=== PATIENT | male | born 1970 | race Caucasian/White ===

== ENCOUNTER → 2021-08-17 | Emergency (ER) | payer MEDICAID ==
[~2021-08-17] VITALS: Ht 185.4 cm; Wt 120.0 kg
[~2021-08-17] MED LIST: CHLO25CA10 PO; LIDOcaine 1% W/epiNEPHrine 1:200,000 10ml vial IJ ONE; SULF1TAB49 PO; sulfamethoxazole/trimethoprim DS (800/160mg) tablet PO ONE
[2021-08-17 17:16] VITALS: BP 164/94
--- NOTE | 2021-08-17 20:03 | NUR ---
PT SEEN AND TREATED BY MD. FORTUNE. PT MEDICALLY CLEAREWD FOR DC. MEDICATION EDUCATION PROVIDED FOR RX. PT VERBALIZED UNDERSTANDING OF ALL DC INSTRUCTIONS AND RETURN PRECAUTIONS.
== END | disposition home or self-care (01) ==
LOC: ER 17:10
DX: L02.211 Cutaneous abscess of abdominal wall (principal)
CPT/HCPCS: 99283